=== PATIENT | male | born 1965 | race Caucasian/White ===

== ENCOUNTER 2016-03-30 18:12 | Emergency (ER) | payer BC ==
[~2016-03-30] VITALS: Ht 198.1 cm; Wt 111.0 kg
[~2016-03-30 18:12] MED LIST: SERT-234 PO
[2016-03-30 18:24] VITALS: TEMP 36.7; Ht 198.1 cm; Wt 111.0 kg
[2016-03-30] MEDS ORDERED: SODIUM CHLORIDE 0.9% 1000ML 1,000 ML IV STA ×3 (18:47→20:33)
[2016-03-30] MEDS ORDERED: METO25TA3 PO (18:47)
[2016-03-30] MEDS ORDERED: ONDANSETRON INJ 2 MG/ML 2 ML VIAL IV STA (18:47)
[2016-03-30] MEDS ORDERED: METO25TA56 PO (18:47)
[2016-03-30 19:04] LABS: BASO % 0.2 %; BASO ABS # 0.02 K/uL (0-0.2); COMPLETE YES; EOS % 1.1 %; HEMATOCRIT 41.7 % (42-52); IG% 0.1 %; LYMPH % 3.3 %; LYMPH ABS # 0.29 K/uL (1.2-3.4); MEAN CELL VOLUME 90.8 fL (80-100); MEAN CORPUSCULAR HEMOGLOBIN 31.8 pg (25-34); MEAN PLATELET VOLUME 9.5 fL (7.4-10.4); MONO % 3.2 %; NEUT % 92.1 %; PLATELET COUNT 225 K/uL (130-400); RED BLOOD COUNT 4.59 M/uL (4.7-6.1); WHITE BLOOD COUNT 8.84 K/uL (4.8-10.8)
[2016-03-30 19:11] LABS: URINE APPEARANCE CLEAR (CLEAR); URINE COLOR DK YELLOW; URINE NITRITE NEG (NEG); URINE SPECIFIC GRAVITY 1.039 (1.000-1.030); UROBILINOGEN NEG (NEG)
--- NOTE | 2016-03-30 19:11 | DIAGNOSTIC IMAGING REPORT ---
CHEST ONE VIEW PORTABLE CLINICAL HISTORY: Weakness, syncope COMPARISON STUDY: 04/08/2008 FINDINGS: The cardiac and mediastinal contours are normal. There is no evidence of focal pulmonary consolidation. There is no evidence of failure. No pleural effusions are visualized.[ IMPRESSION: No active disease in the chest. Electronically signed by: Ian Jim M.D. 03/30/2016 7:10 PM Dictated Date/Time: 03/30/2016 7:10 PM
[2016-03-30 19:14] LABS: PROTHROMBIN TIME (PATIENT) 10.8 SECONDS (9.0-12.0)
--- NOTE | 2016-03-30 19:15 | EMERGENCY ROOM VISIT NOTE ---
History Report prepared by Bessie: Micheline Sharp Under the Supervision of: Dr. Ron Page M.D. First contact with patient: 18:41 Chief Complaint: SYNCOPE Stated Complaint: PASSED OUT AT HOME,DIARRHEA,HEADACHE Nursing Triage Summary: Triage note: Pt reports he woke up today with abd pain and diarrhea. 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 The patient states that this morning he woke up with diarrhea and stomach cramping associated with the diarrhea. He does a significant amount of output with the diarrhea. He states he has been lethargic today and stayed in bed most of the day but when he was going to the bathroom he felt dizzy and had a syncope episode. He states that after the syncope episode he laid on the group for several minutes because he did not have enough energy to move. He denies any pain associated with the syncopal episode. The patient states that he has had a syncopal episode in the past after having a gastric sleeve surgery and contributes to the medication he was taking and dehydration. The patient states today he has had a mild headache , nausea, lightheadedness, and generalized weakness. The patient states he has had 5 episodes of diarrhea throughout the day today. The patient states he also has been trying to drink liquids throughout the day today but has a loss of appetite and has only eaten 1 piece of pizza today. The patient's states that when she arrived home she wanted to have the patient be evaluated in the ED today due to his history of atrial fibrillation. The patient states he is not currently on any prescribed blood thinners but takes aspirin daily. Pt denies fevers, chills, diaphoresis, visual changes, neck pain, chest pain, breathing difficulties, vomiting, abdominal pain, back pain, melena, hematochezia, urinary symptoms, numbness, lymphadenopathy, rash, or other complaints. 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 Review of Systems See HPI for pertinent positives and negatives. A total of ten systems were reviewed and were otherwise negative. Past Medical & Surgical Medical Problems: (1) Atrial fibrillation Surgical Problems: (1) Bariatric surgery status Family History Patient reports no known family medical history. Social History Smokeless Tobacco Use: Yes Marital Status: Housing Status: lives with family Occupation Status: employed Current/Historical Medications Scheduled Metoprolol Succ (Toprol Xl) (Toprol-Xl), 25 MG PO DAILY Sertraline (Zoloft), 150 MG PO DAILY Allergies Coded Allergies: No Known Allergies (Verified , NONE, 03/30/16) Physical Exam Vital Signs Date Time Temp Pulse Resp B/P Pulse Ox O2 Delivery O2 Flow Rate FiO2 03/30/16 23:04 71 18 110/62 98 Room Air 03/30/16 22:08 89 26 98 03/30/16 22:06 104/73 03/30/16 22:04 122/71 03/30/16 22:02 104/67 03/30/16 22:01 89 14 104/67 99 Room Air 109 122/71 107 104/73 03/30/16 21:58 130/87 03/30/16 21:38 86 13 96 03/30/16 21:28 109/78 03/30/16 21:08 82 15 96 03/30/16 21:03 92 16 97 03/30/16 20:58 102/71 03/30/16 20:33 97 14 03/30/16 20:28 115/72 03/30/16 20:26 109/80 03/30/16 20:23 110/80 03/30/16 20:21 129/68 03/30/16 20:20 98 16 129/68 98 Room Air 110 110/80 117 109/80 03/30/16 20:03 88 4 100 03/30/16 19:58 113/77 03/30/16 19:42 87 16 100 03/30/16 19:28 116/80 03/30/16 19:17 96/70 03/30/16 19:15 131/62 03/30/16 19:13 102/70 03/30/16 19:12 98 7 97 03/30/16 19:12 98 20 102/70 98 Room Air 116 131/62 129 96/70 03/30/16 18:59 125/91 03/30/16 18:54 Room Air 03/30/16 18:43 111/67 03/30/16 18:42 97 12 96 03/30/16 18:38 117 03/30/16 18:24 36.7 70 18 104/57 95 Room Air Physical Exam GENERAL: Awake, alert, well-appearing, in no distress HENT: Normocephalic, atraumatic. Oropharynx unremarkable. EYES: Normal conjunctiva. Sclera non-icteric. NECK: Supple. No nuchal rigidity. FROM. No JVD. RESPIRATORY: Clear to auscultation. CARDIAC: Irregular rhythm and borderline tachycardic. Extremities warm and well perfused. Pulses equal. ABDOMEN: Soft, non-distended. No tenderness to palpation. No rebound or guarding. No masses. RECTAL: Deferred. MUSCULOSKELETAL: Chest examination reveals no tenderness. The back is symmetrical on inspection without obvious abnormality. There is no CVA tenderness to palpation. No joint edema. LOWER EXTREMITIES: Calves are equal size bilaterally and non-tender. No edema. No discoloration. NEURO: Normal sensorium. No sensory or motor deficits noted. SKIN: No rash or jaundice noted. Medical Decision & Procedures ER Provider Diagnostic Interpretation: X-ray: Per my interpretation, radiologist review. CHEST ONE VIEW PORTABLE CLINICAL HISTORY: Weakness, syncope COMPARISON STUDY: 04/08/2008 FINDINGS: The cardiac and mediastinal contours are normal. There is no evidence of focal pulmonary consolidation. There is no evidence of failure. No pleural effusions are visualized.[ IMPRESSION: No active disease in the chest. Electronically signed by: Ian Jim M.D. 03/30/2016 7:10 PM Dictated Date/Time: 03/30/2016 7:[address] Scan: Radiology results as stated below per my review and radiologist interpretation CT HEAD WITHOUT CONTRAST (CT) CLINICAL HISTORY: Head pain. Trauma. Forehead contusion. COMPARISON STUDY: No previous studies for comparison. TECHNIQUE: Axial CT of the brain is performed from the vertex to the skull base. IV contrast was not administered for this examination. CT DOSE: 614.27 mGy.cm FINDINGS: No intra or extra-axial mass lesions are visualized. There is no CT evidence of acute cortical infarction. There is no evidence of midline shift. There is no acute hemorrhage. No calvarial fractures are visualized. There is ventricular asymmetry, likely developmental. There is no evidence of acute sinusitis. There is mild frontal scalp edema. IMPRESSION: 1. No evidence of acute intracranial injury 2. Moderate ventricular asymmetry, likely developmental Electronically signed by: Ian Jim M.D. 03/30/2016 10:33 PM Dictated Date/Time: 03/30/2016 10:31 PM Laboratory Results 03/30/16 18:45 Red Blood Count 4.59, Mean Corpuscular Volume 90.8, Mean Corpuscular Hemoglobin 31.8, Mean Corpuscular Hemoglobin Concent 35.0, Mean Platelet Volume 9.5, Neutrophils (%) (Auto) 92.1, Lymphocytes (%) (Auto) 3.3, Monocytes (%) (Auto) 3.2, Eosinophils (%) (Auto) 1.1, Basophils (%) (Auto) 0.2, Neutrophils # (Auto) 8.14, Lymphocytes # (Auto) 0.29, Monocytes # (Auto) 0.28, Eosinophils # (Auto) 0.10, Basophils # (Auto) 0.02 03/30/16 18:45 Test 03/30/16 18:45 White Blood Count 8.84 K/uL (4.8-10.8) Red Blood Count 4.59 M/uL (4.7-6.1) Hemoglobin 14.6 g/dL (14.0-18.0) Hematocrit 41.7 % (42-52) Mean Corpuscular Volume 90.8 fL (80-100) Mean Corpuscular Hemoglobin 31.8 pg (25-34) Mean Corpuscular Hemoglobin Concent 35.0 g/dl (32-36) Platelet Count 225 K/uL (130-400) Mean Platelet Volume 9.5 fL (7.4-10.4) Neutrophils (%) (Auto) 92.1 % Lymphocytes (%) (Auto) 3.3 % Monocytes (%) (Auto) 3.2 % Eosinophils (%) (Auto) 1.1 % Basophils (%) (Auto) 0.2 % Neutrophils # (Auto) 8.14 K/uL (1.4-6.5) Lymphocytes # (Auto) 0.29 K/uL (1.2-3.4) Monocytes # (Auto) 0.28 K/uL (0.11-0.59) Eosinophils # (Auto) 0.10 K/uL (0-0.5) Basophils # (Auto) 0.02 K/uL (0-0.2) RDW Standard Deviation 43.1 fL (36.4-46.3) RDW Coefficient of Variation 13.1 % (11.5-14.5) Immature Granulocyte % (Auto) 0.1 % Immature Granulocyte # (Auto) 0.01 K/uL (0.00-0.02) Prothrombin Time 10.8 SECONDS (9.0-12.0) Prothromb Time International Ratio 1.0 (0.9-1.1) Activated Partial Thromboplast Time 25.1 SECONDS (21.0-31.0) Partial Thromboplastin Ratio 1.0 Urine Color DK YELLOW Urine Appearance CLEAR (CLEAR) Urine pH 5.0 (4.5-7.5) Urine Specific [place] 1.039 (1.000-1.030) Urine Protein NEG (NEG) Urine Glucose (UA) NEG (NEG) Urine Ketones TRACE (NEG) Urine Occult Blood NEG (NEG) Urine Nitrite NEG (NEG) Urine Bilirubin NEG (NEG) Urine Urobilinogen NEG (NEG) Urine Leukocyte Esterase NEG (NEG) Anion Gap 13.0 mmol/L (3-11) Est Creatinine Clear Calc Drug Dose 112.8 ml/min Estimated GFR () 90.2 Estimated GFR (Non- 77.9 BUN/Creatinine Ratio 29.6 (10-20) Calcium Level 8.3 mg/dl (8.5-10.1) Magnesium Level 1.9 mg/dl (1.8-2.4) Total Bilirubin 1.1 mg/dl (0.2-1) Direct Bilirubin mg/dl (0-0.2) Aspartate Amino Transf (AST/SGOT) 19 U/L (15-37) Alanine Aminotransferase (ALT/SGPT) 24 U/L (12-78) Alkaline Phosphatase 60 U/L (45-117) Troponin I < 0.015 ng/ml (0-0.045) Total Protein 7.3 gm/dl (6.4-8.2) Albumin 4.0 gm/dl (3.4-5.0) Lipase 160 U/L (73-393) Thyroid Stimulating Hormone (TSH) 0.778 uIu/ml (0.300-4.500) Chemistry Specimen Hemolysis Laboratory results reviewed by me Medications Administered Medications (Trade) Dose Ordered Sig/Krishan Route Start Time Stop Time Status Last Admin Dose Admin Sodium Chloride 1,000 ml @ 125 mls/hr Q8H STAT IV 03/30/16 18:47 03/31/16 01:07 DC 03/30/16 18:47 125 MLS/HR Sodium Chloride (Nss 1000ml) 1,000 ml @ 999 mls/hr Q1H1M STAT IV 03/30/16 18:47 03/30/16 19:47 DC 03/30/16 18:58 999 MLS/HR Ondansetron HCl (Zofran Inj) 4 mg NOW STAT IV 03/30/16 18:47 03/30/16 18:50 DC 03/30/16 19:11 4 MG Acetaminophen 1000 mg 1,000 mg NOW STAT PO 03/30/16 20:15 03/30/16 20:16 DC 03/30/16 20:19 1,000 MG Sodium Chloride (Nss 1000ml) 1,000 ml @ 999 mls/hr Q1H1M STAT IV 03/30/16 20:33 03/30/16 21:33 DC 03/30/16 21:10 999 MLS/HR ECG Indication: syncope Rate (beats per minute): 103 Rhythm: atrial fibrillation (with RVR) Findings: nonspecific-ST abn, Q waves (Septal), no acute ischemic change, no ectopy ED Course 1846: The patient was evaluated in room C2B. A complete history and physical exam was performed. 7: Ordered Zofran Inj 4 mg IV, Sodium Chloride 1,000 ml @ 999 mls/hr IV, Sodium Chloride 1,000 ml @ 125 mls/hr IV. 2014: Ordered Acetaminophen 1,000 mg PO. 2031: I reevaluated the patient and he states he is feeling better, but he is still experiencing a slight orthostatic change and will receive more IV fluids. 2032: Ordered Sodium Chloride 1,000 ml @ 999 mls/hr IV. 2204: I reevaluated the patient and his orthostatics were improved but he has a hematoma forming on his forehead so it is possible that the patient hit his head during the syncopal episode so a CT scan will be performed. 4: I reevaluated the patient and discussed his CT scan results. I discussed the discharge instructions: The patient verbalized understanding and agreement. The patient is ready for discharge. Medical Decision Prior records/ancillary studies reviewed. Triage Nursing notes reviewed and agree them. Additional history obtained from the family. The patient's history was concerning for syncope. Differential diagnosis: Etiologies such as Dehydration, vasovagal event,infection, hypoglycemia, electrolyte abnormalities, cardiac sources, intracerebral event, toxicologic, neurologic, as well as others were entertained. Physical examination: As above. Borderline tachycardiac and irregular. No signs of trauma. ER treatment provided: IV hydration with normal saline 2 L IV Zofran On reassessment the patient felt much better. Orthostasis resolved. Diagnostics interpretation by me: ECG: A. fib as above. The labs revealed an unremarkable CBC and chemistry panel except for dehydration. Cardiac markers negative. LFTs negative. Urinalysis negative. Imaging studies: X-ray and CT scan as above The patient had several episodes of diarrhea with copious output. He had no blood. The patient was orthostatic. He was treated with IV fluids and gradually felt much better with this. He initially denied any significant head injury. Over time as he was being hydrated he did develop a small hematoma on the forehead. Because of this the patient underwent CT imaging and this was negative. The patient's diagnostic testing was otherwise unremarkable except for some dehydration. Since he was feeling better and his orthostasis resolved I discussed conservative management. The patient and felt comfortable with going home and following up in the office. The patient is chronically in A. fib. If he worsens in any way he will be back to the Emergency Room for reevaluation. By the evaluation outlined above emergent etiologies such as serious bacterial infection, hypoglycemia, electrolyte abnormalities, cardiac sources, intracerebral event, toxicologic, neurologic,as well as others were deemed relatively unlikely. The patient and were informed about the findings as listed above. All questions were answered and they were pleased with the treatment. Return instructions were outlined and the patient was discharged in stable condition. Outpatient prescription management: No change Referral: The patient was referred back to his primary care physician for follow-up in 2 to 3 days for a recheck of the current condition. The chart was completed utilizing [employer] voice recognition software. Grammatical errors, random word insertions, pronoun errors, and incomplete sentences are an occasional consequence of this system due to software limitations, ambient noise, and hardware issues. Any formal questions or concerns about the content, text, or information contained within the body of this dictation should be directly addressed to the physician for clarification. Impression Primary Impression: Syncope Additional Impressions: Dehydration Closed head injury Scribe Attestation The scribe's documentation has been prepared under my direction and personally reviewed by me in its entirety. I confirm that the note above accurately reflects all work, treatment, procedures, and medical decision making performed by me. Departure Information Dispostion Home / Self-Care Referrals Phuc Tidwell M.D. (PCP) Forms HOME CARE DOCUMENTATION FORM, IMPORTANT VISIT INFORMATION Patient Instructions My [facility] Additional Instructions Diagnosis: 1. Syncope 2. Dehydration 3. Closed head injury Acetaminophen(Tylenol) may be used for fever or pain. Use 1000mg every six hours as needed. Avoid using more than 4000mg in a 24 hour period. Rest and drink plenty of fluids as tolerated. Continue current medications. Return to the ER for passing out, chest pain, headache, persistent vomiting, fevers, abdominal pain, chest pains, difficulty breathing, black or bloody stools, worsening of your condition, or as needed. Follow up with your primary physician in 2-3 days for a recheck of your current condition Problem Qualifiers Primary Impression: Syncope Encounter type: initial encounter
[2016-03-30 19:28] LABS: ALT/SGPT 24 U/L (12-78); BLOOD UREA NITROGEN 33 mg/dl (7-18); BUN/CREATININE RATIO 29.6 (10-20); CALCIUM 8.3 mg/dl (8.5-10.1); CARBON DIOXIDE 19 mmol/L (21-32); CHLORIDE 108 mmol/L (98-107); GLUCOSE 98 mg/dl (70-99); MAGNESIUM 1.9 mg/dl (1.8-2.4); POTASSIUM 4.1 mmol/L (3.5-5.1); SODIUM 140 mmol/L (136-145)
[2016-03-30 19:30] LABS: ALKALINE PHOSPHATASE 60 U/L (45-117); AST/SGOT 19 U/L (15-37)
[2016-03-30 19:42] LABS: MANUAL MICROSCOPIC REQUIRED? NO; REVIEW REQ? NO; URINE BILIRUBIN NEG (NEG)
[2016-03-30 19:52] LABS: THYROID STIMULATING HORMONE 0.778 uIu/ml (0.300-4.500)
[2016-03-30] MEDS ORDERED: ACETAMINOPHEN 500 MG TAB PO STA (20:15)
--- NOTE | 2016-03-30 22:34 | DIAGNOSTIC IMAGING REPORT ---
CT HEAD WITHOUT CONTRAST (CT) CLINICAL HISTORY: Head pain. Trauma. Forehead contusion. COMPARISON STUDY: No previous studies for comparison. TECHNIQUE: Axial CT of the brain is performed from the vertex to the skull base. IV contrast was not administered for this examination. CT DOSE: 614.27 mGy.cm FINDINGS: No intra or extra-axial mass lesions are visualized. There is no CT evidence of acute cortical infarction. There is no evidence of midline shift. There is no acute hemorrhage. No calvarial fractures are visualized. There is ventricular asymmetry, likely developmental. There is no evidence of acute sinusitis. There is mild frontal scalp edema. IMPRESSION: 1. No evidence of acute intracranial injury 2. Moderate ventricular asymmetry, likely developmental Electronically signed by: Ian Jim M.D. 03/30/2016 10:33 PM Dictated Date/Time: 03/30/2016 10:31 PM
[2016-03-30 23:04] VITALS: BP 110/62; PULSE 71; O2SAT 98
== END 2016-03-30 23:27 | disposition home or self-care (01) ==
LOC: C.EDB 18:13 → C.EDC 23:27
DX: R55 Syncope and collapse (principal); E86.0 Dehydration; S00.83XA Contusion of other part of head, initial encounter; X58.XXXA Exposure to other specified factors, initial encounter; I48.91 Unspecified atrial fibrillation; Z98.84 Bariatric surgery status